=== PATIENT | male | born 1930 | race Caucasian/White ===

== ENCOUNTER 2017-07-30 16:03 | Emergency (ER) | payer MEDICARE, OTHER ==
[~2017-07-30] VITALS: Ht 175.2 cm; Wt 116.6 kg
[2017-07-30 16:49] LABS: BASO % 0.4 % (0.0-1.0); EOS % 0.2 % (1.0-4.0); HEMATOCRIT 35.4 % (42.0-52.0); HEMOGLOBIN 11.2 g/dl (14.0-18.0); LYMPH # 1.4 10*3/uL (1.3-4.4); LYMPH % 13.1 % (27.0-41.0); MEAN CELL VOLUME 93.9 fl (80.0-94.0); MEAN CORPUSCULAR HGB 29.7 pg (27.0-31.0); MEAN CORPUSCULAR HGB CONC 31.6 g/dl (33.0-37.0); MEAN PLATELET VOLUME 10.2 fl (9.6-12.3); MONO # 1.3 10*3/uL (0.1-1.0); MONO % 11.8 % (3.0-9.0); NEUT # 8.1 10*3/uL (2.3-7.9); NEUT % 73.9 % (47.0-73.0); PLATELET COUNT AUTOMATED 194 10*3/uL (130-400); RED BLOOD COUNT 3.77 10*6/uL (4.50-5.90); RED CELL DISTRI WIDTH 14.7 % (0-14.5)
[2017-07-30 16:59] LABS: ACT PARTIAL THROMBO TIME 36.9 SECONDS (20.8-31.5); INTERNATIONAL NORM RATIO 2.9 (2.0-3.5)
[2017-07-30 17:07] LABS: CREATININE 1.42 mg/dL (0.70-1.30); MAGNESIUM 2.2 mg/dL (1.5-2.1); POTASSIUM 4.8 mmol/L (3.5-5.1)
[2017-07-30 17:13] LABS: TROPONIN I 0.165 ng/ml (<0.045)
[2017-07-30 22:23] LABS: BILIRUBIN NEGATIVE (NEGATIVE); BLOOD NEGATIVE (NEGATIVE); CLARITY CLEAR (CLEAR); COLOR YELLOW (YELLOW); GLUCOSE NEGATIVE (NEGATIVE); KETONE NEGATIVE (NEGATIVE); LEUKO ESTERASE TRACE (NEGATIVE); NITRITE NEGATIVE (NEGATIVE); UROBILINOGEN 0.2 E.U./dl (0.2-1.0)
[2017-07-30 22:32] LABS: BACTERIA 2+; HYALINE CAST 20-25
== END 2017-07-30 23:33 | disposition short-term general hospital (02) ==
LOC: ED 16:03
PROVIDERS: Emergency Medicine
DX: R65.10 Systemic inflammatory response syndrome (SIRS) of non-infectious origin without acute organ dysfunction (principal); I50.43 Acute on chronic combined systolic (congestive) and diastolic (congestive) heart failure; R79.89 Other specified abnormal findings of blood chemistry; R06.82 Tachypnea, not elsewhere classified; Z99.81 Dependence on supplemental oxygen; Z98.890 Other specified postprocedural states

== ENCOUNTER 2017-08-18 14:34 | Inpatient (IN) | payer MEDICARE, OTHER ==
[2017-08-18] VITALS (20 sets, daily range): BP systolic 69–132; BP diastolic 20–54
[~2017-08-18] VITALS: Ht 182.8 cm; Wt 108.7 kg
[2017-08-18 15:47] LABS: HEMATOCRIT 18.3 % (42.0-52.0); MEAN CELL VOLUME 96.3 fl (80.0-94.0); MEAN CORPUSCULAR HGB 30.5 pg (27.0-31.0); MEAN CORPUSCULAR HGB CONC 31.7 g/dl (33.0-37.0); MEAN PLATELET VOLUME 10.7 fl (9.6-12.3); PLATELET COUNT AUTOMATED 235 10*3/uL (130-400); RED CELL DISTRI WIDTH 16.2 % (0-14.5); WHITE BLOOD COUNT 19.2 10*3/uL (4.8-10.8)
[2017-08-18 15:54] LABS: ACT PARTIAL THROMBO TIME 40.8 SECONDS (20.8-31.5); HEMOGLOBIN 5.8 g/dl (14.0-18.0); INTERNATIONAL NORM RATIO 3.7 (2.0-3.5)
[2017-08-18 16:06] LABS: BASOPHILS 1 % (0-1); PLATELET SUFFICIENCY NORMAL (NORMAL); TOTAL CELLS COUNTED 100 #CELLS
[2017-08-18 16:07] LABS: ALBUMIN 2.1 gm/dl (3.1-4.5); CREATININE 4.88 mg/dL (0.70-1.30); MAGNESIUM 3.4 mg/dL (1.5-2.1); POLYCHROMASIA SLIGHT; TOTAL PROTEIN 5.5 gm/dL (6.4-8.2)
[2017-08-18 16:12] LABS: POTASSIUM 6.2 mmol/L (3.5-5.1); TROPONIN I 0.158 ng/ml (<0.045)
[2017-08-18 16:28] LABS: VALPROIC ACID (DEPAKENE) 35.4 ug/ml (50-100)
[2017-08-18] MEDS ORDERED: ASPIRIN CHEWABL81 MG PO (18:28)
[2017-08-18] MEDS ORDERED: LIPITOR40 MG PO (18:28)
[2017-08-18] MEDS ORDERED: BIOFREEZE118 ML T (18:30)
[2017-08-18] MEDS ORDERED: CALCIUM 500 +1 EAC1 PO (18:31)
[2017-08-18] MEDS ORDERED: COUMADIN1 M1 PO (18:31)
[2017-08-18] MEDS ORDERED: DEPAKOTE ER500 MG PO (18:32)
[2017-08-18] MEDS ORDERED: DOCUSATE SODIU100 M2 PO (18:33)
[2017-08-18] MEDS ORDERED: DUONEB 3 MG/3 ML3 M1 INH (18:33)
[2017-08-18] MEDS ORDERED: FLOMAX0.4 MG PO (18:43)
[2017-08-18] MEDS ORDERED: ENULOSE10 GM/151 PO (18:44)
[2017-08-18] MEDS ORDERED: Lasix80 MG PO ×2 (18:47)
[2017-08-18] MEDS ORDERED: ZESTRIL2.5 MG PO (18:48)
[2017-08-18] MEDS ORDERED: CLARITIN10 MG PO (18:49)
[2017-08-18] MEDS ORDERED: MAGNESIUM400 M1 PO (18:49)
[2017-08-18] MEDS ORDERED: Lopressor25 MG PO (18:50)
[2017-08-18] MEDS ORDERED: SPIRIVA -- 3018 MCG INH (18:50)
[2017-08-18] MEDS ORDERED: Synthroid,Levo75 MCG PO (18:51)
[2017-08-18] MEDS ORDERED: TYLENOL EXTRA500 M2 PO (18:53)
[2017-08-18] MEDS ORDERED: TYLENOL325 M2 PO (18:53)
[2017-08-18] MEDS ORDERED: ULORIC40 MG PO (18:54)
[2017-08-18] MEDS ORDERED: VITAMIN C1000 M5 PO (18:55)
[2017-08-18] MEDS ORDERED: WELLBUTRIN XL150 MG PO (18:56)
[2017-08-19] VITALS (10 sets, daily range): BP systolic 68–97; BP diastolic 31–67
== END 2017-08-19 03:29 | disposition short-term general hospital (02) | DRG 377 ==
LOC: ED 14:34 → EDHOLD 15:46 → ICCU 15:46
PROVIDERS: Emergency Medicine; ADMIT Internal Medicine
PROC: 30233N1 Transfusion of Nonautologous Red Blood Cells into Peripheral Vein, Percutaneous Approach (ICD-10-PCS; principal; 2017-08-19)
DX: K92.2 Gastrointestinal hemorrhage, unspecified (principal); N17.0 Acute kidney failure with tubular necrosis; R57.1 Hypovolemic shock; E43 Unspecified severe protein-calorie malnutrition; R65.10 Systemic inflammatory response syndrome (SIRS) of non-infectious origin without acute organ dysfunction; I13.0 Hypertensive heart and chronic kidney disease with heart failure and stage 1 through stage 4 chronic kidney disease, or unspecified chronic kidney disease; I50.9 Heart failure, unspecified; E83.41 Hypermagnesemia; E87.5 Hyperkalemia; D62 Acute posthemorrhagic anemia; I48.0 Paroxysmal atrial fibrillation; R79.1 Abnormal coagulation profile; G62.9 Polyneuropathy, unspecified; E78.5 Hyperlipidemia, unspecified; N18.3 Chronic kidney disease, stage 3 (moderate); K57.90 Diverticulosis of intestine, part unspecified, without perforation or abscess without bleeding; Z80.1 Family history of malignant neoplasm of trachea, bronchus and lung; Z90.49 Acquired absence of other specified parts of digestive tract; Z82.49 Family history of ischemic heart disease and other diseases of the circulatory system; Z79.82 Long term (current) use of aspirin; Z79.899 Other long term (current) drug therapy; Z68.32 Body mass index [BMI] 32.0-32.9, adult

== ENCOUNTER 2019-06-10 13:11 | Emergency (ER) | payer MEDICARE, OTHER ==
[~2019-06-10] VITALS: Wt 90.7 kg
--- NOTE | ~2019-06-10 | EKG ---
[place], [place] ELECTROCARDIOGRAM REPORT NAME: CELI BARAJAS UNIT #: [id number] ROOM: DOCTOR: JYOTSNA DRAFT REPORT BIRTHDATE: [birth year] [facility] Test Date: 2019-06-10 Test Time: 13:13:41 Pat Name: CELI BARAJAS Department: Room: Gender: Tax Compliance Officer: : 1930 Requested By: BRIAN MAZARIEGOS Order Number: [id number] Reading MD: Ash Haney Measurements Intervals [place] Rate: 90 P: OR: QRS: -39 QRSD: 123 T: 137 QT: 366 QTc: 448 Interpretive Statements ? Atrial rhythm Left bundle branch block No previous ECG available for comparison Electronically Signed On 06-11-2019 11:58:58 PDT by Ash Haney CM:EKGRPT:ELECTROCARDIOGRAM REPORT [id number] BRIAN GOYAL DRAFT REPORT BRIAN MAZARIEGOS MD
[~2019-06-10 13:11] MED LIST: ASPIRIN CHEWABL81 MG PO; BIOFREEZE118 ML T; CALCIUM 500 +1 EAC1 PO; CLARITIN10 MG PO; COUMADIN1 M1 PO; DEPAKOTE ER500 MG PO; DOCUSATE SODIU100 M2 PO; DUONEB 3 MG/3 ML3 M1 INH; ENULOSE10 GM/151 PO; FLOMAX0.4 MG PO; LIPITOR40 MG PO; Lasix80 MG PO; Lopressor25 MG PO; MAGNESIUM400 M1 PO; SPIRIVA -- 3018 MCG INH; Synthroid,Levo75 MCG PO; TYLENOL EXTRA500 M2 PO; TYLENOL325 M2 PO; ULORIC40 MG PO; VITAMIN C1000 M5 PO; WELLBUTRIN XL150 MG PO; ZESTRIL2.5 MG PO
[2019-06-10 14:16] LABS: HEMATOCRIT 28.4 % (42.0-52.0); HEMOGLOBIN 8.3 g/dl (14.0-18.0); MEAN CELL VOLUME 98.3 fl (80.0-94.0); MEAN CORPUSCULAR HGB 28.7 pg (27.0-31.0); MEAN CORPUSCULAR HGB CONC 29.2 g/dl (33.0-37.0); MEAN PLATELET VOLUME 11.5 fl (9.6-12.3); PLATELET COUNT AUTOMATED 256 10*3/uL (130-400); RED BLOOD COUNT 2.89 10*6/uL (4.50-5.90); RED CELL DISTRI WIDTH 14.9 % (0-14.5); WHITE BLOOD COUNT 22.8 10*3/uL (4.8-10.8)
[2019-06-10 14:32] LABS: ACT PARTIAL THROMBO TIME 32.4 SECONDS (20.0-32.1); INTERNATIONAL NORM RATIO 2.2 (2.0-3.5)
[2019-06-10 14:34] LABS: CREATININE 2.96 mg/dL (0.70-1.30); POTASSIUM 5.1 mmol/L (3.5-5.1); TOTAL PROTEIN 6.9 gm/dL (6.4-8.2)
[2019-06-10 14:38] LABS: TROPONIN I 0.254 ng/ml (<0.045)
[2019-06-10 14:43] LABS: TOTAL CELLS COUNTED 100 #CELLS
[2019-06-10 14:44] LABS: POLYCHROMASIA SLIGHT
[2019-06-10 14:45] LABS: OVALOCYTES FEW; STOMATOCYTE FEW
[2019-06-10 14:46] LABS: PLATELET SUFFICIENCY NORMAL (NORMAL)
[2019-06-10 16:05] LABS: BILIRUBIN 3+ (NEGATIVE); BLOOD 3+ (NEGATIVE); CLARITY CLOUDY (CLEAR); COLOR RED (YELLOW); GLUCOSE 1+ (NEGATIVE); KETONE 2+ (NEGATIVE); LEUKO ESTERASE 3+ (NEGATIVE); NITRITE POSITIVE (NEGATIVE); PH 8.5 (5.0-9.0); SPECIFIC GRAVITY <= 1.005 (1.005-1.030); UROBILINOGEN >= 8.0 E.U./dl (0.2-1.0)
[2019-06-10 16:28] LABS: RBC TNTC rbc/hpf (0-2)
[2019-06-10 16:29] LABS: BACTERIA 4+; MUCOUS 2+
== END 2019-06-10 17:00 | disposition short-term general hospital (02) ==
LOC: ED 13:11
PROVIDERS: Emergency Medicine
DX: A41.9 Sepsis, unspecified organism (principal); N39.0 Urinary tract infection, site not specified; R65.21 Severe sepsis with septic shock; N17.9 Acute kidney failure, unspecified; R79.89 Other specified abnormal findings of blood chemistry; R31.0 Gross hematuria; R42 Dizziness and giddiness; R41.0 Disorientation, unspecified; N18.3 Chronic kidney disease, stage 3 (moderate); E78.5 Hyperlipidemia, unspecified; I48.91 Unspecified atrial fibrillation; I50.9 Heart failure, unspecified; E11.22 Type 2 diabetes mellitus with diabetic chronic kidney disease; Z79.82 Long term (current) use of aspirin; Z79.899 Other long term (current) drug therapy; Z79.01 Long term (current) use of anticoagulants